=== PATIENT | female | born 1990 | race Two or more races ===

== ENCOUNTER 2022-11-08 20:31 | Emergency (ER) | payer BC, OTHER ==
[~2022-11-08] VITALS: Ht 157.5 cm; Wt 59.0 kg
--- NOTE | 2022-11-08 20:49 | NUR ---
BIBRA 889 FOR C/O R SIDED NECK AND CHEST PAIN, R KNEE AND L RING FINGER. Placed in bed 10. MD at bedside for eval and orders.
[2022-11-08] MEDS: IBUPROFEN 600 MG TABLET PO ONE (22:30)
[2022-11-08] MEDS ORDERED: HYDROCODONE/APAP 10/325MG TABLET ONE (22:38)
[2022-11-08] MEDS: HYDROCODONE/APAP 10/325MG TABLET PO ONE (22:40)
[2022-11-08] MEDS ORDERED: IBUP-1955 PO (22:46)
[2022-11-08] MEDS ORDERED: CYCL10TA9 PO (22:46)
[2022-11-08] MEDS ORDERED: HYDR-3972 PO (22:46)
[2022-11-08 22:53] VITALS: BP 115/70
--- NOTE | 2022-11-08 22:53 | NUR ---
Patient discharged to home in stable condition. Written and verbal after care instructions given. Patient verbalizes understanding of instruction.
--- NOTE | 2022-11-08 22:53 | NUR ---
Patient discharged to home in stable condition. Written and verbal after care instructions given. Patient verbalizes understanding of instruction.
== END 2022-11-08 22:53 | disposition home or self-care (01) ==
LOC: ER 20:33
DX: S16.1XXA Strain of muscle, fascia and tendon at neck level, initial encounter (principal); S63.615A Unspecified sprain of left ring finger, initial encounter; R51.9 Headache, unspecified; R10.9 Unspecified abdominal pain; Z88.0 Allergy status to penicillin; Z88.2 Allergy status to sulfonamides; V32.5XXA Driver of three-wheeled motor vehicle injured in collision with two- or three-wheeled motor vehicle in traffic accident, initial encounter; Y93.89 Activity, other specified; Y92.89 Other specified places as the place of occurrence of the external cause; Y99.0 Civilian activity done for income or pay
CPT/HCPCS: 70450-TC; 71045-TC; 72125-TC; 73130-TC; 84703-TC